=== PATIENT | female | born 1960 | race Caucasian/White ===

== ENCOUNTER → 2016-12-26 | Outpatient (CLI) | payer BC ==
[~2016-12-26] MED LIST: DEXA4TA PO
--- NOTE | 2016-12-28 09:35 | RADONC ---
RADIATION ONCOLOGY CONSULTATION NOTE: DATE: 12/26/2016 CHART NUMBER: [id number]. DIAGNOSIS: Recurrent meningioma. GRADE: 1. ECOG PERFORMANCE STATUS: 1. CONSULTATION NOTE: Ms. Quigley is a very pleasant, 56-year-old white female with the diagnosis of a well-differentiated recurrent meningioma who is presenting to me today for consideration of postoperative radiation therapy utilizing IMRT as a therapeutic option in an attempt to achieve local control. HISTORY OF PRESENT ILLNESS: The patient has a very long history of this disease. Apparently, her history dates back to 1991 when she underwent left brain surgery for what was then diagnosed as a grade 1 meningioma. She had lost vision in her left eye following that surgery and has been followed by ophthalmology. Her right eye vision has remained good. The patient did well until 2007, when she underwent surgery at [facility] with Dr. Coon for a local recurrence. Postoperative radiation was recommended but she did not accept it. She had been followed by neurosurgery until 2011 and then was lost to followup for a few years. In 2017, she noticed some bulging along her left superior cheek. CT scan done 08/28/2016 showed left frontotemporal craniotomy changes and residual left middle cranial fossa sphenoid wing meningioma. The tumor measured 2.6 cm x 3.8 cm x 3 cm. This was any increase from previous CT of 2011 when it measured 1.5 x 2.5 x 0.8 cm. There was also noted to be increased hyperostosis of the lateral wall of the left orbit with mild mass effect on the lateral rectus muscle. There was no enhancing mass within the left orbit. There was noted to be an interval increase of the soft tissue component of the left temporalis muscle. An MRI was done on 09/10/2016 and showed a meningioma measuring 4.5 cm x 3 cm x 4.3 cm. There was no interorbital extension despite the left-sided proptosis. The patient was referred to [facility] and saw Dr. Lopes. An MRI was done on 11/12/2016, which showed some postsurgical changes in the left frontal parietal craniotomy area and a large extent style multi compartmental mass in the left frontal convexity sphenoid wing and lateral orbital wall middle cranial fossa. The overall wall component extended into the superior lateral extraconal space. The inferior component extended to the foramen ovale area and the lateral component extended to the temporalis fossa deep into the zygomatic arch. On 11/22/2016 the patient underwent debulking surgery at [facility]. Craniectomy with bone flap for craniotomy and excision of brain tumor was performed. The pathology revealed a meningioma, [id number] was less than 3%. The meningioma was involving soft tissue as well as bone of the left temporal area. Dr. Lopes recommended postoperative radiation therapy with IMRT and she was subsequently seen by Dr. Holli Barragan at [facility]. The patient lives in this region and is therefore being referred to me for discussion of postoperative radiation therapy. PAST MEDICAL HISTORY: The patient's past medical history is positive for hypertension and asthma. The patient had a hemorrhoidectomy in the past as well. She had breast reduction surgery in the year 1999. SOCIAL HISTORY: The patient had smoked 2 cigarettes per day for 20 years. She quit the in the year 1999. She does not abuse alcohol. ALLERGIES: The patient has NO KNOWN DRUG ALLERGIES. FAMILY HISTORY: The patient's family history is positive for a grandmother with breast cancer and an uncle with lung cancer. REVIEW OF SYSTEMS: The patient's review of systems is positive for visual loss in her left eye as well as proptosis and occasional headaches. She also has some anxiety. It is otherwise noncontributory. She denies nausea, vomiting, fevers, chills, night sweats, diplopia, anorexia, weight loss, chest pain, urinary or bowel difficulties, bone pain or neurological problems other than visual loss. PHYSICAL EXAMINATION: The patient is a well-developed, well-nourished, white female, in no acute distress. HEENT: Exam is normocephalic. She is status post craniotomy. There is notable left-sided proptosis. Her right eye has extraocular movements intact. There is no palpable cervical, supraclavicular, infraclavicular, axillary or inguinal lymphadenopathy present. Her lungs are clear to auscultation and percussion. Heart has regular rate and rhythm. Her abdomen is benign with no splenomegaly, masses or tenderness. Skeletal examination reveals no tenderness to pressure, percussion of the bony skeleton. Neurologic exam is grossly intact except for her left eye and vision issues. The remainder of the physical examination is unremarkable. ASSESSMENT: I have had a lengthy discussion with this patient with regards to postoperative radiation therapy with IMRT/IGRT. Clearly, the patient is a candidate for this treatment and I so informed her. I have discussed with the patient in detail the potential benefits as well as possible acute and chronic sequelae of external beam radiation therapy. We have discussed logistics of treatment planning, simulation and subsequent fractionated daily radiation treatments. I have specifically discussed with her my concerns about her visual issues. We will make every attempt to reduce the dose to the contralateral optic nerve and optic chiasm. Clearly, she has already lost vision in the left eye and therefore that she not be an issue. Thank you for allowing us to participate in the care of this very pleasant woman. I will keep you informed as to any new developments as they occur. As always, warm regards. cc: Dr. Holli Lopes cc: Juan Antonio Coon MD [facility] CENTERLisette
== END ==
LOC: M ONCR 09:13
PROVIDERS: ATTEND Radiology Radiation Oncology
DX: D32.9 Benign neoplasm of meninges, unspecified (principal)

== ENCOUNTER 2017-01-02 10:33 | Outpatient (RCR) | payer BC, OTHER ==
--- NOTE | 2017-01-02 10:48 | RADONC ---
RADIATION ONCOLOGY SIMULATION NOTE: DATE: 01/02/2017 CHART NUMBER: SIMULATION NOTE: Ms. Quigley was taken to the CT scan for CT simulation of her brain field. CT was accomplished without difficulty or discomfort. Radiation treatment planning is underway and radiation treatments will begin subsequently. An immobilization device including a mass was created without difficulty or discomfort. It will be used throughout the course of treatment. I was physically present throughout the course of CT simulation.
--- NOTE | 2017-01-28 08:46 | RADONC ---
RADIATION ONCOLOGY PROGRESS NOTE DATE: 01/27/2017 CHART NUMBER: [id number] Ms. Quigley underwent her first fraction of 180 cGy today to her brain. It was tolerated without difficulty or discomfort. REVIEW OF SYSTEMS: The patient's review of systems is unchanged. She continues to have loss of vision in one eye. She was having no new headaches or other problems. PHYSICAL EXAMINATION: The patient's physical exam remains unchanged as well. Clearly there is no radiation change to the skin. Ms. Quigley tolerated her first fraction without difficulty and radiation will continue as scheduled.
== END 2017-01-30 ==
LOC: M ONCR 10:33
PROVIDERS: ATTEND Radiology Radiation Oncology
DX: D32.0 Benign neoplasm of cerebral meninges (principal)

== ENCOUNTER → 2017-01-02 | Outpatient (CLI) | payer BC, OTHER ==
[2017-01-02 11:22] LABS: MEAN CORPUSCULAR HEMOGLOBIN 32.9 pg (27.0-33.0); MEAN CORPUSCULAR HGB CONC 33.3 g/dl (32.0-36.5); MEAN CORPUSCULAR VOLUME 98.9 fl (80.0-96.0); RED CELL DISTRIBUTION WIDTH 12.6 % (11.5-14.5); WHITE BLOOD COUNT 4.5 K/mm3 (4.0-10.0)
== END ==
LOC: M RAD 10:24
PROVIDERS: ATTEND Radiology Radiation Oncology
DX: D32.0 Benign neoplasm of cerebral meninges (principal)

== ENCOUNTER → 2017-01-14 | Outpatient (CLI) | payer BC, OTHER ==
--- NOTE | 2017-01-14 12:43 | REP ---
MRI brain without and with IV gadolinium: History: Meningioma. Postop. Comparison studies: Comparison CT exams are reviewed from August 20, 2016 and January 02, 2017. Comparison MRI study dated November 23, 2016. Patient is status post surgery and apparently radiotherapy for meningioma. Technique: Axial, sagittal and coronal imaging planes are utilized. T1 and T2-weighted scans are obtained including spin echo, turbo spin echo, FLAIR, and diffusion weighted sequences. Post gadolinium enhanced T1-weighted spin echo sequences are acquired in all three planes. The gadolinium enhancement dose is 17 mL of intravenous ProHance. MRI findings: In the interval since the August 20, 2016 imaging, a repeat resection has been performed involving the left middle cranial fossa. The left temporal bone is resected with a prosthesis in place. The extracranial temporalis muscle mass has been resected. The intracranial soft-tissue meningioma component has been resected from the anteroinferior temporal lobe region. There is still thickening, sclerosis and some blistering bony changes in the lateral wall of the orbit and left sphenoid bone. This encroaches to some degree on the lateral aspect of the left orbit posteriorly as before. There is a small zone of enhancing extra-axial soft tissue in the left inferior frontal region. This measures 14 mm in greatest dimension. It has a broad dural attachment compatible with some residual meningioma. Minimal dural thickening is seen along the left frontal craniotomy anteriorly. There is some encephalomalacia in the left inferolateral frontal lobe and left anterior temporal lobe. This is unchanged. No other abnormal gadolinium enhancement is seen intracranially. Again noted is nodular enhancing soft tissue density occupying most of the left half of the sphenoid sinus 2.0 cm in greatest diameter. The adjacent portion of the sphenoid bone shows hypertrophic sclerosis changes and this intra sphenoid sinus nodule is most likely residual meningioma tumor as well. There are minimal small vessel microvascular changes. There is no evidence of cortical infarction or hemorrhage. Exam is otherwise unremarkable. Impression: Complex postoperative changes in the left frontal and temporal lobe region. Some nodular enhancing dural base soft tissue residual is seen 14 mm in greatest diameter in the left inferior frontal lobe. There is also enhancing nodular soft tissue in the left side of the sphenoid sinus suspicious for residual or recurrent meningioma. The previously noted extracranial left temporalis muscle masses has been resected. Signed by Lio Muñiz MD 01/14/2017 01:07 P
== END ==
LOC: M RAD 09:31
PROVIDERS: ATTEND Radiology Radiation Oncology
DX: D33.0 Benign neoplasm of brain, supratentorial (principal)
CPT/HCPCS: 70553; A9576

== ENCOUNTER 2017-01-31 10:59 | Outpatient (RCR) | payer BC, OTHER ==
--- NOTE | 2017-02-05 10:08 | RADONC ---
RADIATION ONCOLOGY PROGRESS NOTE: DATE: 02/04/2017 CHART NUMBER: [id number]. PROGRESS NOTE: Ms. Quigley is presently a dose of 1080 cGy to her primary site brain and is tolerating treatments quite well at this point with no complaints related to her radiation therapy. She is having no headaches or other problems. REVIEW OF SYSTEMS: The patient's review of systems is noncontributory. Denies nausea, vomiting, fevers, chills, night sweats, diplopia, headaches, anxiety or depression, anorexia, weight loss, visual disturbances, chest pain, urinary or bowel difficulties, bone pain, or neurological problems. PHYSICAL EXAMINATION: The patient's skin is in good condition with no evidence of radiation change present. There is no moist or dry desquamation. The remainder of her physical exam remains unchanged. Ms. Quigley is tolerating treatments quite well at this point and radiation will continue as scheduled.
[2017-02-10] MEDS ORDERED: DEXA4TA PO (15:22)
--- NOTE | 2017-02-11 07:59 | RADONC ---
RADIATION ONCOLOGY PROGRESS NOTE DATE: 02/10/2017 CHART NUMBER: [id number]. PROGRESS NOTE: Ms. Quigley is presently at a dose of 1800 cGy to her brain and is tolerating her treatments fairly well. She is complaining however of some nausea. She is not presently taking any Decadron. REVIEW OF SYSTEMS: The patient's review of systems is positive for nausea but is otherwise noncontributory. Denies nausea, vomiting, fevers, chills, night sweats, diplopia, headaches, anxiety or depression, anorexia, weight loss, visual disturbances, chest pain, urinary or bowel difficulties, bone pain, or neurological problems. PHYSICAL EXAMINATION: The patient's skin is in excellent condition with no evidence of radiation change present. There is no moist or dry desquamation. The remainder of physical exam remains unchanged. Ms. Quigley is tolerating her treatments fairly well. I have sent in a prescription for Decadron 4 mg to be taken twice a day initially. We will continue to follow her for her nauseousness. I believe the Decadron should help. If not, I can give her some antiemetics as well.
--- NOTE | 2017-02-18 07:11 | RADONC ---
RADIATION ONCOLOGY PROGRESS NOTE: DATE: 02/17/2017 CHART NUMBER: [id number] Ms. Quigley is presently at a dose of 2700 cGy to her meningioma and is tolerating treatments quite well at this point with no complaints related to her radiation therapy. She is having no headaches or other problems at the present time. REVIEW OF SYSTEMS: The patient's review of systems is noncontributory. She denies nausea, vomiting, fevers, chills, night sweats, diplopia, headaches, anxiety or depression, anorexia, weight loss, visual disturbances, chest pain, urinary or bowel difficulties, bone pain, or neurological problems. PHYSICAL EXAMINATION: The patient's skin is in good condition with no evidence of radiation change present. There is no moist or dry desquamation. The remainder of her physical exam remains unchanged. Ms. Quigley is tolerating treatments quite well and radiation will continue as scheduled.
--- NOTE | 2017-02-25 08:12 | RADONC ---
RADIATION ONCOLOGY PROGRESS NOTE DATE: 02/24/2017 CHART NUMBER: [id number]. PROGRESS NOTE: Ms. Quigley is presently at a dose of 3600 cGy to her meningioma. The patient comes in today complaining of eye pain as well as some soreness of the throat. REVIEW OF SYSTEMS: The patient's review of systems is positive for some soreness in the upper oral cavity, as well as some eye pain and headaches, but is otherwise noncontributory. Denies nausea, vomiting, fevers, chills, night sweats, diplopia, headaches, anxiety or depression, anorexia, weight loss, visual disturbances, chest pain, urinary or bowel difficulties, bone pain, or neurological problems. PHYSICAL EXAMINATION: There appears to be some eye irritation over the nonfunctional left eye. The right eye is fine with no discomfort or any signs of radiation reaction. The skin over the radiated field is in good condition with no evidence of moist or dry desquamation. The remainder of physical exam remains unchanged. I have given Ms. Quigley the remainder of this week for rest. She will be returning on Friday for reevaluation. I have let her know to contact her movie star, who she will be calling today. I have recommended that she see him tomorrow if possible. She will contact me if she has any difficulty getting in to see him right away. In the meantime, she has been given skin care and oral cavity instructions. I have recommended that she gargle with warm water, salt and baking soda. We will continue to follow her and radiation should be able to resume on Friday. DOROTHY
== END 2017-03-01 ==
LOC: M ONCR 10:59
PROVIDERS: ATTEND Radiology Radiation Oncology
DX: D32.0 Benign neoplasm of cerebral meninges (principal)

== ENCOUNTER → 2017-03-07 | Outpatient (CLI) | payer BC, OTHER ==
[2017-03-07 16:24] LABS: BLOOD UREA NITROGEN 31 MG/DL (7-18); CREATININE FOR GFR 0.77 MG/DL (0.55-1.02); GLOMERULAR FILTRATION RATE > 60.0 (>51)
== END ==
LOC: M LAB 15:19
PROVIDERS: ATTEND Radiology Radiation Oncology
DX: C71.9 Malignant neoplasm of brain, unspecified (principal)

== ENCOUNTER → 2017-03-11 | Outpatient (CLI) | payer BC, OTHER ==
[~2017-03-11] MED LIST changes: +PROHANCE 279.3MG/ML 15ML VIAL (A9576) As Ordered ONE; +PROHANCE 279.3MG/ML 5ML VIAL (A9576) As Ordered ONE
--- NOTE | 2017-03-11 19:13 | REP ---
MR BRAIN WITHOUT AND WITH CONTRAST: HISTORY: Brain carcinoma. CONTRAST: ProHance 17.5 mL. COMPARISON: 01/14/2017 The patient is status-post left temporal parietal craniotomy. There is enhancement of the greater sphenoid wing and floor of the left middle cranial fossa. There is thickening of the lateral wall and roof of the left orbit with associated enhancement. A small enhancing extradural component is present overlying the anteroinferior left frontal lobe. A small amount of enhancing tissue is present in the left sphenoid sinus. These findings are consistent with residual tumor. Increased signal intensity on T2 weighted images is present in the posterior left frontal and anterior left temporal and parietal lobes. There is dilatation of the overlying cortical sulci and body of the left lateral ventricles. This represents gliosis and encephalomalacia. There is no intraparenchymal hemorrhage or midline shift. Areas of increased signal intensity are present in the periventricular and subcortical white matter. This represents small vessel ischemic disease. The ventricular system and cortical sulci are dilated consistent with mild volume loss. There is no subdural fluid collection. There is enhancement of the dura which is a normal postoperative finding. IMPRESSION: The patient is status-post partial resection of a left greater sphenoid wing, left frontal temporal convexity meningioma. Residual meningioma is present as described above. Signed by Kp Rios MD 03/11/2017 07:19 P
== END ==
LOC: M RAD 14:52
PROVIDERS: ATTEND Radiology Radiation Oncology
DX: C71.9 Malignant neoplasm of brain, unspecified (principal)
CPT/HCPCS: 70553; A9576

== ENCOUNTER → 2017-04-16 | Outpatient (CLI) | payer BC, OTHER ==
[~2017-04-16] MED LIST changes: -PROHANCE 279.3MG/ML 15ML VIAL (A9576) As Ordered ONE; -PROHANCE 279.3MG/ML 5ML VIAL (A9576) As Ordered ONE
--- NOTE | 2017-04-18 07:04 | RADONC ---
RADIATION ONCOLOGY FOLLOWUP NOTE: DATE: 04/16/2017 CHART NUMBER: [id number] DIAGNOSIS: Recurrent meningioma STAGE: Grade 1 ECOG PERFORMANCE STATUS: 1 Ms. Quigley is a very pleasant 57-year-old comfort 1960 white female with the diagnosis of a well-differentiated recurring meningioma who is presenting to us today for routine followup visit 1 month post completion of external beam radiation therapy. The patient presents today reporting that she continues to have visual difficulties in her remaining functioning right eye. She also has some episodes of unsteadiness of gait. The patient remains on Decadron 8 mg a day since completion of treatment. She has not begun tapering her Decadron as of yet. The patient also reports that she is scheduled to be seen at [facility] in approximately 1-1/2 weeks. She let me know that they will be doing a new MRI there. They have been managing her disease in [place]. REVIEW OF SYSTEMS: The patient's review of systems is positive for continued blurriness of vision in her remaining functioning eye on the right. She reports that the visual acuity is episodic sometimes better than others. She also has the difficulty with gait. Her review of systems is otherwise noncontributory. She denies nausea, vomiting, fevers, chills, night sweats, diplopia, headaches, anxiety, depression, urinary or bowel difficulties, bone pain. PHYSICAL EXAM: The patient is a well-developed, well-nourished white female in no acute distress. HEENT: Exam is normocephalic, atraumatic. She has some edema secondary to her Decadron usage. She has left-sided proptosis. Her right eye has extraocular movements that are intact. There is no palpable cervical, supraclavicular, infraclavicular, axillary or inguinal lymphadenopathy present. Lungs: Clear to auscultation and percussion. Heart has regular rate and rhythm. ASSESSMENT: I am concerned at this point the patient has continued visual difficulties. At this time, however she reports that an MRI he is scheduled in [place] and she is being followed by her neurosurgery service at [facility]. I am await their expert opinion with regards to our present status. In light of the fact that she is having an MRI done in a few days, I have not ordered any new studies. In addition, considering her continued symptoms, I do not at this time wish to give her a Decadron taper schedule until we know what is going on the MRI. I of course, will defer that to the neurosurgical service at [facility] as well. I have set the patient to come back to us in June to continue close followup and monitoring. I have asked her to contact us and let us know what her physicians in [place] say as well. We have reviewed the treatment plan and radiation to the contralateral eye, optic nerve and optic chiasm was limited and with intolerance doses. I am hoping that some of this difficulty is secondary to edema rather than to any tumor growth. cc: MD Juan Antonio Claudio MD Viviane Tabar, MD
== END ==
LOC: M ONCR 14:37
PROVIDERS: ATTEND Radiology Radiation Oncology
DX: D32.0 Benign neoplasm of cerebral meninges (principal)

== ENCOUNTER → 2017-06-25 | Outpatient (CLI) | payer BC, OTHER | LOC: M ONCR 15:24 | DX: C71.2 Malignant neoplasm of temporal lobe (principal) | CPT/HCPCS: G0463 ==

== ENCOUNTER → 2017-07-15 | Outpatient (CLI) | payer BC, OTHER ==
[~2017-07-15] MED LIST changes: -DEXA4TA PO; +PROHANCE 279.3MG/ML 15ML VIAL (A9576) As Ordered; +PROHANCE 279.3MG/ML 5ML VIAL (A9576) As Ordered
== END ==
LOC: M RAD 08:15
DX: H47.20 Unspecified optic atrophy (principal); H05.20 Unspecified exophthalmos; D33.0 Benign neoplasm of brain, supratentorial
CPT/HCPCS: A9576

== ENCOUNTER → 2017-12-31 | Outpatient (CLI) | payer BC, OTHER | LOC: M ONCR 15:24 | DX: D32.0 Benign neoplasm of cerebral meninges (principal) | CPT/HCPCS: G0463 ==